=== PATIENT | female | born 1965 | race Caucasian/White ===

== ENCOUNTER 2020-12-06 13:41 | Observation (INO) | payer OTHER ==
[~2020-12-06] VITALS: Ht 162.6 cm; Wt 75.5 kg
--- NOTE | ~2020-12-06 | HC ---
[facility] [place] [address] CONSULTATION Name: RITCHIE DUNAWAY Room #: [address] [place] [address] Elif Escamilla#: [id number] Admission: 12/06/20 Attend Phys: Chong Harkins MD Discharge: 12/07/20 Date of : 69 Report #: [id number] THIS REPORT FOR: cc: FAM - Family physician unknown FAM - Family physician unknown Rm Jeffers MD ~ DATE OF SERVICE: 12/07/2020 12/07/2020 HISTORY OF PRESENT ILLNESS: The patient is a 55-year-old white female who was admitted with hand numbness. She had just received her second COVID vaccine on the day of admission and noted complaints of left hand numbness as well as some perioral numbness. She notes the symptoms have essentially resolved regarding the left hand numbness. MRI of the brain was noted to be negative. She has been seen by Neurology. MRI of the cervical spine did show some moderate left C4-C5 neural foraminal stenosis. She is feeling better now. Some headache. PAST MEDICAL HISTORY: Does include a prior history of multiple sclerosis. She will typically have ataxia with exacerbations, does not have any complaints of that currently. Noted to be stable and is not on any medication management. Prior medical history otherwise negative. ALLERGIES: TOMATO AND CONTRAST DYE. MEDICATIONS: Please see the full medication listing. HABITS: No history of tobacco abuse. Occasional ETOH in special occasions. REVIEW OF SYSTEMS: No current complaints of chest pain, shortness of breath or abdominal discomfort. SOCIAL HISTORY: The patient lives with her , ary, 3 steps in, does not utilize gait aids. PHYSICAL EXAMINATION: GENERAL: A pleasant 55-year-old white female, in no obvious distress. She appeared stated age. VITAL SIGNS: Her last recorded temperature is 98.1, pulse 65, respirations 16, blood pressure 133/81. NEUROLOGIC: She is alert, pleasant, interactive, verbalizes very well. Facies appeared symmetric. Follows all commands without difficulty. She has full range of motion of both upper and lower extremities, appeared to have normal coordination with [id number]. Tone was intact. Strength appeared symmetric and appeared full. She was able to sit to stand for me independently. She has excellent standing balance. Romberg was negative. [address] [address] CONSULTATION Name: RITCHIE DUNAWAY Room #: [address] [place] [address] Elif Escamilla#: [id number] Admission: 12/06/20 Attend Phys: Chong Harkins MD Discharge: 12/07/20 Date of : 69 Report #: [id number] ASSESSMENT: A 55-year-old white female with the following problem list: 1. Left upper extremity numbness noted after she received her COVID vaccine. This is noted to resolve. 2. Prior history of multiple sclerosis. No evidence of any current exacerbation per Neurology. PLAN: The patient is doing very well functionally. Does not have the deficits to warrant an in-hospital inpatient rehabilitation stay. Would anticipate she should be able to return directly home as she further medically stabilizes. Thank you for asking us to assist in this patient's care. By: 1056 2300 Rm Jeffers MD /PMT
--- NOTE | ~2020-12-06 | HC ---
[facility] [place] [address] [place] [address] CONSULTATION Name: RITCHIE DUNAWAY Room #: 170-11 ADM IN M.R.#: [id number] Admission: 12/06/20 Attend Phys: Chong Harkins MD Discharge: Date of : 69 Report #: [id number] THIS REPORT FOR: cc: NÉSTOR - Family physician unknown NÉSTOR - Family physician unknown Abdirizak Bonds MD ~ DATE OF SERVICE: 12/06/2020 HISTORY OF PRESENT ILLNESS: This is a 55-year-old female patient who was evaluated by me for stroke protocol. She was having some speech difficulty as well as numbness on the left side. The speech difficulty has resolved and she had subjective numbness on the left side and that the only symptom she has. She has a longstanding MS. She follows up with Dr. Batista. She has seen him for a long time. During the relapse, she has symptoms of ataxia as well as numbness. She is presently on any disease modifying treatment. She tells me this is because she has been stable. I do not know what she means by that whether she is stable clinically, radiologically or both, but the best I can tell, it is both. She was given the option of having a disease-modifying treatment or not and she decided not to be on disease-modifying treatment. She is on supplements. She does not give any history of stroke in the past. REVIEW OF SYSTEMS: Positive for diagnosis of MS and follow up with Dr. Batista. Presently, she is not on any disease-modifying treatment and says disease has been stable for a long time. She had numerous MRI and the last one was without contrast. She indicated that because of the dye reaction. Rest of the 14-point review of system appeared mostly noncontributory. She is not on any hormone, but she still has an IUD and because of that, she said she has not had any periods. When I asked her, she had a menopause she says she does not know because she has IUD and she does not get period. FAMILY HISTORY: Unremarkable. PAST MEDICAL HISTORY: Positive for multiple sclerosis. SOCIAL HISTORY: She drinks alcohol occasionally. PHYSICAL EXAMINATION: NEUROLOGIC: She is alert. She is responsive. She can follow simple and complex command. Cranial nerve examination 2-12 looks unremarkable. Neuromuscular examination looks unremarkable. The feeling of subjective numbness is there, but it is a subjective finding. Her position sense is intact on both sides. There is no meningeal sign. GENERAL: She is reasonably well-built individual. VITAL SIGNS: Her blood pressure is 122/77, respirations 15, pulse is 83, temperature is 98.5. [facility] [address] [place] [address] CONSULTATION Name: RITCHIE DNUAWAY Room #: [address] [facility] IN M.R.#: [id number] Admission: 12/06/20 Attend Phys: Chong Harkins MD Discharge: Date of : 69 Report #: [id number] EXTREMITIES: She has no edema, cyanosis or jaundice. LABORATORY STUDIES: Lab indicates a white count of 6.0, and GFR of 65. IMPRESSION: Difficult to tell whether these symptoms are because of multiple sclerosis, stroke or even disk, which she says she has in the neck. I discussed the situation with her and the family doctor. I do not think she is a good TPA candidate because she tells she has a subjective numbness, but I did discuss that option with her and she also decided against TPA. She had multiple questions, which I answered. We have limitations because we do not have her prior MRI for comparison. We cannot give her contrast because SHE IS ALLERGIC TO CONTRAST, although she does not know which contrast she is allergic to. The best will be to make a disk L4 MRI and let her take to a neurologist who can compare with her past MRI. I will also get a carotid Doppler done to make sure there is not anything unusual like dissection, etc. in this patient. Further workup will depend upon the outcome of these testing. I discussed all of it with the patient in detail. Dr. Brown will follow up this patient with you from tomorrow. By: 1620 1654 Abdirizak Bonds MD /nt
[2020-12-06 14:02] VITALS: BP 151/90
[2020-12-06 14:37] LABS: ABSOLUTE NEUTROPHILS 3.5 thou/uL (1.4-8.2); BASOPHILS 0.4 % (0.0-2.0); EOSINOPHILS 1.3 % (0.0-3.0); HEMATOCRIT 42.2 % (37.0-47.0); HEMOGLOBIN 13.9 gm/dL (12.0-15.0); LYMPHOCYTES 30.8 % (24.0-44.0); MCH 30.5 pg (26.0-34.0); MCV 92.6 fL (80.0-100.0); PLATELET COUNT 251 thou/uL (150-400); POLYS 58.5 % (36.0-66.0); RBC 4.56 mil/uL (4.20-5.00); RDW 13.8 % (10.5-14.5)
[2020-12-06] MEDS ORDERED: COQ-1030 MG PO (14:38)
[2020-12-06] MEDS ORDERED: B-COMPLEX-VITA1 EACH PO (14:39)
[2020-12-06 14:43] LABS: ANION GAP 10 mmol/L (7-16); BUN 13 mg/dL (7-18); CHLORIDE 106 mmol/L (98-107); CO2 28 mmol/L (21-32); CREATININE 0.9 mg/dL (0.6-1.0); GLUCOSE 127 mg/dL (74-106); POTASSIUM 3.8 mmol/L (3.5-5.1); SODIUM 144 mmol/L (136-145)
[2020-12-06 14:51] LABS: TROPONIN-I <0.06 ng/mL (<0.06)
--- NOTE | 2020-12-06 15:00 | NUR ---
health service coordinator to see patient. pt lying in bedside HOB elevated. normal speech. reports numbness to left upper ext. denies any weakness. reports slurred speech [employer]. Dr Bernardo at bedside. Dr Bonds also consults patient. NIHSS-1. Dr Bonds does NOT recommend tPA. Patient has a hx of MS however reports she has never had this symptom before. Dr Bonds orders multiple MRI tests without contrast since patient is allergic to contrast. MRI screening sheet completed and MRI dept notified. Dr Bonds also requesting a US of corotids. Dr Bernardo notified. I will continue to monitor and follow this patient.
[2020-12-06 15:38] LABS: URINE BILIRUBIN NEGATIVE (Negative); URINE BLOOD NEGATIVE (Negative); URINE CLARITY CLEAR; URINE COLOR YELLOW; URINE GLUCOSE-RANDOM* NEGATIVE (Negative); URINE KETONES NEGATIVE (Negative); URINE LEUKOCYTES-REFLEX TRACE (Negative); URINE NITRITE-REFLEX NEGATIVE (Negative); URINE PROTEIN (DIPSTICK) NEGATIVE (Negative); URINE SPECIFIC GRAVITY <= 1.005 (1.005-1.035); URINE UROBILINOGEN 0.2 E.U./dl (0.2-1.0)
--- NOTE | 2020-12-06 15:41 | NUR ---
ST ATTEMPTED TO SEE PATIENT FOR BEDSIDE SWALLOW EVALUATION ON 12/06/20, HOWEVER PATIENT AT MRI AND UNAVAILABLE AT THIS TIME. ST WILL RE-ATTEMPT TOMORROW. THANK YOU.
[2020-12-06 16:49] VITALS: BP 122/77
[2020-12-06 18:16] VITALS: BP 115/70
[2020-12-06 18:18] VITALS: BP 133/88
--- NOTE | 2020-12-06 18:57 | NUR ---
RECEIVED PT FROM ER. VSS, AFEBRILE. PT AT THE BEDSIDE. LOW FALL PRECAUTIONS IN PLACE.
[2020-12-06 19:30] VITALS: BP 106/79
[2020-12-07 00:08] VITALS: BP 117/76
--- NOTE | 2020-12-07 04:29 | NUR ---
ASSUMED PT CARE AT CHANGE OF SHIFT, PT IS AWAKE, ALERT AND ORIENTEDX4, DENIES PAIN OR SOB, ADMISSION ASSESSMENT, EDUCATION AND HISTORY COMPLETED, SR ON THE MONITOR, NIH SCORE OF A ZERO, VSS, DENIES CONCERNS, WILL CONTINUE TO MONITOR AND FOLLOW POC
[2020-12-07 04:30] VITALS: BP 119/77
[2020-12-07 05:14] LABS: CHOLESTEROL 151 mg/dL (<200); HDL CHOLESTEROL 62 mg/dL (>40); LDL CHOLESTEROL 77 mg/dL (<100); TC:HDL 2.4 Ratio (Not establshd); TRIGLYCERIDE 62 mg/dL (<150); VLDL 12 mg/dL (<40)
[2020-12-07 05:16] LABS: GLYCOHEMOGLOBIN (HGB A1C) 5.4 % (4.8-5.6)
[2020-12-07 05:25] LABS: SERUM ASSESSMENT Clear
[2020-12-07 07:20] VITALS: BP 133/81
--- NOTE | 2020-12-07 07:51 | EKG ---
[address] [address] ELECTROCARDIOGRAM REPORT Name: RITCHIE DUNAWAY Room #: 207-P ADM IN M.R.#: [id number] Admission: 12/06/20 Attend Phys: Chong Harkins MD Discharge: Date of : 69 Report #: [id number] [facility] ED Test Date: 2020-12-06 Test Time: 13:51:00 Pat Name: RITCHIE DUNAWAY Department: Room: 207 Gender: [employer] Analyst: PAULY : 1965 Requested By: Evaristo Painting Order Number: [id number] MD: Swapnil Saleem Measurements Intervals [place] Rate: 89 P: 58 ME: 123 QRS: 21 QRSD: 85 T: 34 QT: 350 QTc: 426 Interpretive Statements Sinus rhythm Poor R wave progression No previous ECG available for comparison Electronically Signed On 12-07-2020 7:51:18 CDT by Swapnil Saleem [email or web address] <ELECTRONICALLY SIGNED> By: Swapnil Saleem MD, [facility] 12/07/20 0751 1351 1351 Swapnil Saleem MD, FACC /EPI
--- NOTE | 2020-12-07 09:14 | NUR ---
LATE NOTE: THIS INJECTOR ASSEMBLER MET WITH THE PATIENT ON 12/06 AND HER AFTER CODE STROKE RESPONSE. WE HAD A TIME OF PRAYER WE CONCLUDED.
--- NOTE | 2020-12-07 10:46 | 2DMMODE ---
[facility] [address] [place] [address] 2 D/M-MODE ECHOCARDIOGRAM Name: RITCHIE DUNAWAY Room #: 207-P ADM IN M.R.#: [id number] Admission: 12/06/20 Attend Phys: Chong Harkins MD Discharge: Date of : 69 Report #: [id number] THIS REPORT FOR: cc: FAM - Family physician unknown FAM - Family physician unknown Pawan Rosales MD ~ APPROVED REPORT Study performed: 12/07/2020 09:21:01 EXAM: Comprehensive 2D, Doppler, and color-flow Echocardiogram Patient Location: Bedside Room #: 207 Status: routine BSA: 1.81 HR: 72 bpm BP: 133/81 mmHg Rhythm: NSR Other Information Study Quality: Good Indications CVA/TIA Echo Enhancing Agent Indication: Rule out Shunt Agent(s) / Amount(s) Used: Agitated Saline 7 cc 2D Dimensions RVDd: 29.84 mm IVSd: 9.87 (7-11mm) LVOT Diam: 18.73 (18-24mm) LVDd: 47.40 mm PWd: 8.86 (7-11mm) Ascending Ao: 26.48 (22-36mm) LVDs: 30.98 (25-40mm) Left Atrium: 32.90 (27-40mm) Aortic Root: 27.44 mm IVC: 16.00 mm Volumes Left Atrial Volume (Systole) Single Plane 4CH: 36.78 mL Single Plane 2CH: 47.54 mL LA ESV Index: 26.00 mL/m2 Aortic Valve [facility] [address] [place] [address] 2 D/M-MODE ECHOCARDIOGRAM Name: RITCHIE DUNAWAY Room #: 207-P ADM IN M.R.#: [id number] Admission: 12/06/20 Attend Phys: Kamla Lin Discharge: Date of : 69 Report #: [id number] AoV Peak Johnnie.: 1.25 m/s AO Peak Gr.: 6.22 mmHg LVOT Max P.27 mmHg LVOT Max V: 1.15 m/s SOPHIE Vmax: 2.54 cm2 AI Vmax: 4.32 m/s AI [place]: 2.46 m/s2 AI PHT: 511.49 ms Mitral Valve E/A Ratio: 1.4 MV Decel. Time: 180.15 ms MV E Max Johnnie.: 0.83 m/s MV A Johnnie.: 0.58 m/s MV PHT: 52.24 ms IVRT: 87.66 ms Pulmonary Valve PV Peak Johnnie.: 0.93 m/s PV Peak Gr.: 3.45 mmHg Left Ventricle The left ventricle is normal size. There is normal LV segmental wall motion. There is normal left ventricular wall thickness. Left ventricular systolic function is normal. The left ventricular ejection fraction is within the normal range. LVEF is 55-60%. The left ventricular diastolic function is normal. Right Ventricle The right ventricle is normal size. The right ventricular systolic function is normal. Atria The left atrium size is normal. Interatrial septum is intact without evidence of ASD or PFO. The right atrium size is normal. Aortic Valve The aortic valve is normal in structure. Mild to moderate aortic regurgitation. There is no aortic valvular stenosis. Mitral Valve The mitral valve is normal in structure. Mild mitral regurgitation. No evidence of mitral valve stenosis. Tricuspid Valve The tricuspid valve is normal in structure. There is no tricuspid valve regurgitation noted. [facility] [address] [place] [address] 2 D/M-MODE ECHOCARDIOGRAM Name: RITCHIE DUNAWAY Room #: 207-P ADM IN M.R.#: [id number] Admission: 12/06/20 Attend Phys: Kamla Lin Discharge: Date of : 69 Report #: [id number] Pulmonic Valve The pulmonary valve is normal in structure. There is no pulmonic valvular regurgitation. Great Vessels The aortic root is normal in size. IVC is normal in size and collapses >50% with inspiration. Pericardium There is no pericardial effusion. <Conclusion> The left ventricle is normal size. LVEF is 55-60%. The left atrium size is normal. The aortic valve is normal in structure. Mild to moderate aortic regurgitation. The tricuspid valve is normal in structure. The pulmonary valve is normal in structure. The aortic root is normal in size. There is no pericardial effusion. Interatrial septum is intact without evidence of ASD or PFO. <ELECTRONICALLY SIGNED> By: Pawan Rosales MD 12/07/20 1046 1046 1046 Pawan Rosales MD /INF
[2020-12-07 11:21] VITALS: BP 133/81
--- NOTE | 2020-12-07 12:29 | NUR ---
ORDERS RECEIVED FOR PT EVAL AND TREAT. Pt ADMITTED WITH PARESTHESIAS AND R/O CVA. MRI NEGATIVE FOR ACUTE CVA. HAS HX OF MS. LIVES WITH AND HAS STAIRS TO BEDROOM THAT Pt HAS NO DIFFICULTY WITH. WALKS A FEW MILES A DAY AND TO PILATES. REPORTING A HEADACHE AND SOME TINGLING ON R SIDE OF FACE THIS MORNING. REPORTS THE PARESTHESIAS ARE 'TRANSIENT.' Pt HAS BEEN UP TO BATHROOM SEVERAL TIMES BY HERSELF. VERY POLITELY DECLINING PT NEEDS AT THIS TIME. ACUTE PT TO SIGN OFF.
--- NOTE | 2020-12-07 13:13 | NUR ---
PT IS PROGRESSING TOWARDS DISCHARGE, NO NEW SYMPTOMS TODAY, PT STATES THAT SHE FEELS BETTER, ECHO WAS DONE FOR BUBBLE TEST, WAS SEEN BY PT/OT CLEARED. RN PROVIDED DISCHARGE INSTRUCTION. NO ISSUES AT THIS TIME. BY OLGA, WAS INSTRUCTED TO USE BED ALARM, IF PT FEELS UNSTEADY RN WILL PROVIDED WHEELCHAIR REPORT. PT SEEN WALKING OUT OF THE HOSPITAL WITH
== END 2020-12-07 13:19 | disposition home or self-care (01) ==
LOC: ER 13:41 → EROBS 15:30 → 2N 15:30
PROVIDERS: Nurse Practitioner; ADMIT Hospitalist; ATTEND Hospitalist
DX: R20.2 Paresthesia of skin (principal); R20.0 Anesthesia of skin; G35 Multiple sclerosis; Z91.018 Allergy to other foods; Z91.048 Other nonmedicinal substance allergy status
CPT/HCPCS: 10081